=== PATIENT | male | born 2000 | race Hispanic/Latino ===

== ENCOUNTER 2024-11-13 21:27 | Emergency (ER) | payer SELFPAY ==
[2024-11-13 21:28] VITALS: BP 120/80
[2024-11-13 21:42] LABS: % Basophils 0.3 % (0-2); % Eosinophils 0.2 % (0-6); % Immature Granulocytes 1.1 % (0-0.5); % Lymphocytes 10.6 % (20.5-51.1); % Monocytes 2.7 % (1.7-9.3); % Neutrophils 85.1 % (42.2-75.2); Absolute Immature Granulocytes 0.1 10^3/uL (0-0.05); Absolute Lymphocytes 1.4 10^3/uL (1.2-3.4); Absolute Monocytes 0.4 10^3/uL (0.1-0.6); Absolute Neutrophils 11.3 10^3/uL (1.4-6.5); Hematocrit 43.4 % (39.0-52.0); Hemoglobin 14.2 g/dL (13.0-18.0); Mean Corp Hgb Conc. 32.7 g/dL (33.0-37.0); Mean Corpuscular Hgb 30.2 pg (27.0-31.0); Mean Corpuscular Volume 92.3 fL (80.0-94.0); Nucleated Red Blood Cells % 0 % (-); Platelet Count 183 10^3/uL (130-400); Red Cell Dist. Width 12.8 % (11.5-14.5); White Blood Cell Count 13.3 10^3/uL (4.8-10.8)
[2024-11-13 21:58] LABS: ALT (SGPT) 31 U/L (0-50); AST (SGOT) 29 U/L (17-59); Albumin 4.4 g/dl (3.5-5.0); Alkaline Phosphatase 49 U/L (38-126); Blood Urea Nitrogen 16 mg/dl (9-20); Calcium 9.4 mg/dl (8.4-10.2); Carbon Dioxide 28 mmol/L (22-30); Chloride 106 mmol/L (98-107); Glucose 101 mg/dl (70-99); Lipase 150 U/L (23-300); Potassium 3.8 mmol/L (3.5-5.1); Sodium 142 mmol/L (135-145); Total Bilirubin 0.4 mg/dl (0.2-1.3); Total Protein 6.9 g/dl (6.3-8.2); eGFR > 60.00
--- NOTE | 2024-11-13 23:41 | ED.GENMED ---
History of Present Illness
General
Chief Complaint: Abdominal Pain
Source: patient
Exam Limitations: none
Time Seen by Provider: 11/13/24 23:32
Nursing documentation reviewed up to this point in time: agreed with
History of Present Illness
History of Present Illness:
This is a 24-year-old male with no past medical history presents emergency department today with concerns of nausea, vomiting, abdominal pain that started around 4 hours ago. Patient reports that he was out to dinner when he started to have
vomiting and bystanders called EMS. Patient reports that he can control his vomiting probably vomited total around 5 times. Patient states that he started develop diffuse abdominal pain. Patient is never had anything like this before. Patient
has no history of intra-abdominal surgeries, no known sick contacts, he has not been on any antibiotics recently. He denies any fevers or chills. This started after eating dinner. He has been feeling well the past few days and this came on all of
a sudden. States that pain seems to be worse in the left lower abdomen. He denies any burning with urination, upper respiratory symptoms like cough or shortness of breath, chest pain. He has not tried anything for symptoms.
Review of Systems
Review of Systems
All Other Systems: ROS reviewed and negative except as documented in HPI and ROS
Phy Exam
Physical Exam
Physical Exam:
General: Patient is well appearing and in no acute distress; non-toxic
Skin: Warm and dry, no rashes or lesions
Head: Normocephalic, atraumatic
Eyes: Sclera non-icteric. EOMs intact.
Cardiac: Regular rate and rhythm, no murmurs
Peripheral Vascular: No lower extremity swelling or edema
Pulm: Normal respiratory effort, no wheezes, rales, or rhonchi
Abdomen: Diffuse lower abdominal tenderness noted with guarding, left lower > right, no Mcburney's point tenderness, normoactive bowl sounds
Neuro: CN II-XII intact, no focal neurologic deficits.
Psychiatric: Appropriate mood and affect.
Course
Orders/Labs/Results
Orders:
Orders
11/13/24 21:37
Complete Blood Count/With Diff Urgent
Comprehensive Metabolic Panel Urgent
Lipase Urgent
11/14/24 00:00
Add On- LAB Urgent
Tests Added?: lipase
11/14/24 00:01
0.9% Sodium Chloride 1000 ml [Nss] 1,000 ml IV BOLUS
11/14/24 00:05
CT Abd/pelvis W Iv Cont Urgent
Reason For Exam: LLQ ab pain
Abnormal Lab Results
11/13/24
21:37
WBC 13.3 H 10^3/uL
(4.8-10.8)
MCHC 32.7 L g/dL
(33.0-37.0)
Abs Immat Gran (auto) 0.1 H 10^3/uL
(0-0.05)
Absolute Neuts (auto) 11.3 H 10^3/uL
(1.4-6.5)
Immature Gran % 1.1 H %
(0-0.5)
Neutrophils % 85.1 H %
(42.2-75.2)
Lymphocytes % 10.6 L %
(20.5-51.1)
Glucose 101 H mg/dl
(70-99)
11/13/24 21:37
11/13/24 21:37
Vital Signs
Initial and Last Documented VS:
Initial Vital Signs
Temp Pulse Resp BP Pulse Ox
97.8 F 74 20 120/80 100
11/13/24 21:28 11/13/24 21:28 11/13/24 21:28 11/13/24 21:28 11/13/24 21:28
Last Documented Vital Signs
Temp Pulse Resp BP Pulse Ox
97.8 F 74 20 110/72 99
11/13/24 21:28 11/13/24 21:28 11/13/24 21:28 11/14/24 01:00 11/13/24 23:57
MDM/Problems Addressed
Differential Diagnosis Includes:
Differentials include foodborne illness/gastroenteritis, early appendicitis, diverticulitis, bowel obstruction
MDM/Problems Addressed:
This is a 24-year-old male with no past medical history presents emergency department today with concerns of nausea, vomiting, abdominal pain that started around 4 hours ago. Patient reports that he was out to dinner when he started to have
vomiting and bystanders called EMS. On physical exam he is well-appearing, afebrile. He does have some guarding and abdominal tenderness to palpation, did send for CAT scan which was negative for any acute appendicitis or diverticulitis. Findings
on CAT scan concerning for gastroenteritis. Patient given IV fluids and Zofran, Zofran prescription sent to pharmacy, return precautions discussed. Patient stable for discharge.
Chronic conditions affecting care:
N/A
*Pulse Oximetry
Patient hypoxic: no
*Critical Care Note
Total Time (30-74mins, 75-104mins- exclusive of procedures): Not Applicable
Data Reviewed
Review of Other/Old Records Reveals: Records ([facility], no prior discharge summary to review)
Source: patient
ED Attending Note
-
Portions of this chart may have been created with voice recognition software.� Occasional wrong word or��sound alike� substitutions may have occurred due to the inherent limitations of voice recognition software.
Discharge Plan
Departure
Patient Disposition: Home (Routine Discharge)
Date of Disposition: 11/14/24
Time of Disposition: 01:21
Patient with high blood pressure during this ER visit?: No
Condition: Good
Discharge Problem:
Viral gastroenteritis
Instructions: Viral gastroenteritis in adults, Nausea and Vomiting, Adult (DC)
Prescriptions:
New
ondansetron 4 mg tablet,disintegrating
4 mg PO Q4H PRN (Reason: nausea) Qty: 10 0RF
Activity Restrictions/Additional Instructions:
Le entregaron loulou copia de wolf tomograf�a computarizada. [place] ya se mencion�, mant�ngase jose hidratado. Le enviaron Zofran a wolf farmacia; puede sunni loulou tableta cada 4 horas seg�n sea necesario para las n�useas y los v�mitos.
Por favor, regrese a urgencias si presenta n�useas o v�mitos intratables, incapacidad para tolerar la ingesta oral, empeoramiento angela de naheed s�ntomas, dolor en el pecho, dificultad para respirar o cualquier otro signo o s�ntoma que le preocupe.
Por favor, consulte con wolf m�dico de cabecera para loulou consulta de seguimiento.

You were given a copy of your CT scan. As discussed, please stay well hydrated. Zofran has been sent to your pharmacy, you can take one tablet every 4 hours as needed for nausea and vomiting.
Please return to the emergency department should you develop intractable nausea or vomiting, inability to tolerate oral intake, acute worsening of your symptoms, chest pain, shortness of breath, or any other signs or symptoms worrisome to you.
Please follow up with your primary care provider.
Interventions
Interventions:
*Risk Screen - Suicide Last Done: 11/13/24 21:28
*General Assessment Last Done: 11/13/24 23:49
*Neglect/Abuse Screening Last Done: 11/13/24 21:28
*ED- Fall Risk Assessment Last Done: 11/13/24 23:49
*ED COVID-19 Vaccine History Last Done: 11/13/24 23:49
*Nursing Disposition Last Done: 11/14/24 01:58
DQ-Huyyeo-Zpqzkkdwwj Assessment Last Done: 11/13/24 23:49
Discharge Date and Time
Discharge Date/Time: 11/14/24 01:59
Print Language: TANZANIAN
[2024-11-13 23:44] VITALS: BP 112/69
[2024-11-14] VITALS: BP 120/71
[2024-11-14] MEDS: NSS 1000 IV (00:17)
[2024-11-14 01:00] VITALS: BP 110/72
== END 2024-11-14 01:59 | disposition home or self-care (01) ==
LOC: EMR 21:27
PROVIDERS: Emergency Medicine; EMERGENCY PHYSICIAN Emergency Medicine
DX: A08.4 Viral intestinal infection, unspecified (principal); R10.32 Left lower quadrant pain
CPT/HCPCS: 99284; 96360; 74177; 80053; 83690; 85025; Q9967